=== PATIENT | female | born 2000 | race Hispanic/Latino ===

== ENCOUNTER 2020-01-24 11:56 | Observation (INO) | payer MEDICAID, OTHER ==
[~2020-01-24] VITALS: Ht 154.9 cm; Wt 57.2 kg
[2020-01-24 12:41] LABS: APPEARANCE,URINE CLEAR (CLEAR); BILIRUBIN,URINE NEGATIVE (NEGATIVE); COLOR,URINE YELLOW (YELLOW); GLUCOSE, URINE (UA) NEGATIVE (NEGATIVE); KETONES,URINE NEGATIVE (NEGATIVE); LEUKOCYTE ESTERASE ,URINE MODERATE (NEGATIVE); NITRATE,URINE NEGATIVE (NEGATIVE); OCCULT BLOOD,URINE NEGATIVE (NEGATIVE); PROTEIN,URINE NEGATIVE (NEGATIVE)
[2020-01-24 12:49] LABS: AMPHET/METH SCREEN,URINE NEGATIVE (NEGATIVE); BARBITURATE SCREEN, URINE NEGATIVE (NEGATIVE); BENZODIAZEPINES SCREEN,URINE NEGATIVE (NEGATIVE); CANNABINOID SCREEN,URINE NEGATIVE (NEGATIVE); COCAINE SCREEN,URINE NEGATIVE (NEGATIVE); OPIATE SCREEN,URINE NEGATIVE (NEGATIVE); PHENCYCLIDINE SCREEN,URINE NEGATIVE (NEGATIVE)
[2020-01-24 12:55] LABS: BACTERIA,URINE Few /HPF (None Seen); RBC,URINE 0-1 /HPF (0-1)
[2020-01-24 12:56] LABS: SQUAMOUS EPITHELIAL CELL,UR Few /HPF (0-2)
[2020-01-24 14:25] VITALS: BP 100/75
== END 2020-01-24 14:35 | disposition home or self-care (01) ==
LOC: EDH 11:56 → LDH 12:19
PROVIDERS: ADMIT Obstetrics & Gynecology; ATTEND Obstetrics & Gynecology
DX: O26.893 Other specified pregnancy related conditions, third trimester (principal); R10.9 Unspecified abdominal pain; Z3A.40 40 weeks gestation of pregnancy
CPT/HCPCS: 80305; 81001; 87088; 99284; G0378 ×2

== ENCOUNTER 2020-01-26 21:59 | Inpatient (IN) | payer MEDICAID, OTHER ==
[~2020-01-26] VITALS: Ht 157.5 cm; Wt 59.4 kg
[2020-01-26] MEDS ORDERED: LACTATED RINGERS 1000ML IV PRN (22:15)
[2020-01-26 22:36] LABS: BILIRUBIN,URINE Negative (NEGATIVE); COLOR,URINE Yellow (YELLOW); GLUCOSE, URINE (UA) Negative (NEGATIVE); KETONES,URINE Negative (NEGATIVE); LEUKOCYTE ESTERASE ,URINE Moderate (NEGATIVE); NITRATE,URINE Negative (NEGATIVE); OCCULT BLOOD,URINE Negative (NEGATIVE); PH,URINE 7.5 (5.0-8.0); PROTEIN,URINE Negative (NEGATIVE)
[2020-01-26 22:38] LABS: APPEARANCE,URINE CLEAR (CLEAR)
[2020-01-26 22:43] LABS: AMPHET/METH SCREEN,URINE NEGATIVE (NEGATIVE); BARBITURATE SCREEN, URINE NEGATIVE (NEGATIVE); BENZODIAZEPINES SCREEN,URINE NEGATIVE (NEGATIVE); CANNABINOID SCREEN,URINE NEGATIVE (NEGATIVE); COCAINE SCREEN,URINE NEGATIVE (NEGATIVE); OPIATE SCREEN,URINE NEGATIVE (NEGATIVE); PHENCYCLIDINE SCREEN,URINE NEGATIVE (NEGATIVE)
[2020-01-26 22:52] LABS: BACTERIA,URINE Few /HPF (None Seen); RBC,URINE 0-1 /HPF (0-1)
[2020-01-26] MEDS ORDERED: AMPICILLIN 2GM+NS 100ML 100 ML IV SCH (23:00)
[2020-01-26 23:23] LABS: HEMATOCRIT 35.2 % (36-48); MEAN CORPUSCULAR HEMOGLOBIN 22.9 pg (27.0-33.0); MEAN CORPUSCULAR HGB CONC 29.8 g/dL (32.0-36.0); MEAN CORPUSCULAR VOLUME 76.9 fL (80-100); PLATELET COUNT (AUTO) 260 K/uL (130-400); RED BLOOD CELL COUNT(AUTO) 4.58 MIL/uL (4.00-5.50); RED CELL DISTRIBUTION WIDTH 15.2 % (11.0-15.5); WHITE BLOOD COUNT (AUTO) 8.4 K/uL (4.8-10.8)
[2020-01-26] MEDS ORDERED: AMPICILLIN 2GM+NS 100ML 100 ML IV ONE (23:41)
[2020-01-26] MEDS ORDERED: LACTATED RINGERS 1000ML 1,000 ML IV ONE (23:42)
[2020-01-26] MEDS ORDERED: LACTATED RINGERS 1000ML 1,000 ML IV PRN (23:49)
[2020-01-26 23:54] VITALS: BP 119/81
[2020-01-27] MEDS ORDERED: OXYTOCIN-LR 20 UNITS/1000 ML 1,000 ML IV PRN
[2020-01-27] MEDS: AMPICILLIN 1GM+NS 50ML 50 ML IV SCH ×2 (03:03→07:02)
[2020-01-27] MEDS ORDERED: PREN1TAB80 PO (06:22)
[2020-01-27] MEDS ORDERED: OXYTOCIN 10 USP UNITS/ML 20 UNIT in LACTATED RINGERS 1000ML 1,000 ML IV SCH (08:15)
[2020-01-27] MEDS ORDERED: BUTORPHANOL TARTRATE 2 MG/ML IVP SCH (08:30)
[2020-01-27] MEDS ORDERED: BUTORPHANOL TARTRATE 2 MG/ML ONE (08:32)
[2020-01-27] MEDS ORDERED: LIDOCAINE HCL 1% 20 ML VIAL ONE (09:06)
[2020-01-27] MEDS ORDERED: METHYLERGONOVINE MALEATE 0.2 MG/1 ML ML ONE (09:08)
[2020-01-27] MEDS ORDERED: BENZOCAINE/LANOLIN/ALOE VERA 60 ML AEROSOL TP PRN (09:30)
[2020-01-27] MEDS ORDERED: DIPH,PERTUSS(ACELL),TET VAC/PF 0.5 ML VIAL IM PRN (09:30)
[2020-01-27] MEDS ORDERED: ACETAMINOPHEN-CODEINE 300/30MG TAB PO PRN (09:30)
[2020-01-27] MEDS ORDERED: LANOLIN 30GM OINTMENT TP PRN (09:30)
[2020-01-27] MEDS ORDERED: ACETAMINOPHEN 325 MG TAB PO PRN (09:30)
[2020-01-27] MEDS ORDERED: WITCH HAZEL 1 PAD TP PRN (09:30)
[2020-01-27] MEDS ORDERED: MEASLES/MUMPS/RUBELLA VACCINE, LIVE 0.5 ML/VIAL SQ PRN (09:30)
[2020-01-27] MEDS: IBUPROFEN 600 MG TABLET PO PRN ×2 (11:10→18:34)
[2020-01-27 12:50] VITALS: BP 120/81
[2020-01-27 13:42] LABS: RAPID PLASMA REAGIN NONREACTIVE (NONREACTIVE)
[2020-01-27 17:10] VITALS: BP 115/82
[2020-01-27 19:45] VITALS: BP 112/70
[2020-01-27] MEDS: DOCUSATE SODIUM 100 MG CAP PO SCH (20:28)
[2020-01-28 00:05] VITALS: BP 112/77
[2020-01-28] MEDS: IBUPROFEN 600 MG TABLET PO PRN ×3 (04:19→16:56)
[2020-01-28 04:25] VITALS: BP 116/75
[2020-01-28 06:59] LABS: HEMATOCRIT 27.8 % (36-48); MEAN CORPUSCULAR HEMOGLOBIN 23.3 pg (27.0-33.0); MEAN CORPUSCULAR HGB CONC 30.2 g/dL (32.0-36.0); RED BLOOD CELL COUNT(AUTO) 3.61 MIL/uL (4.00-5.50); RED CELL DISTRIBUTION WIDTH 15.1 % (11.0-15.5); WHITE BLOOD COUNT (AUTO) 9.9 K/uL (4.8-10.8)
[2020-01-28 07:22] VITALS: BP 102/67
[2020-01-28] MEDS: DOCUSATE SODIUM 100 MG CAP PO SCH ×2 (08:47→21:45)
--- NOTE | 2020-01-28 09:45 | NUR ---
SS Referral for No PNC SW met with pt. who is alert and cooperative. Pt. reports that this is her third /delivery and has named baby Tremaine Laurent. Other children are 2y, 1y, currently being cared for by [facility] and reportedly current with immunizations. Pt. is not employed outside the home; spouse Deepak Laurent is employed in construction. Pt. denied any history of PPD and verbalized an awareness/knowledge of signs/symptoms. Pt. denied any history of depression or anxiety; denied any use of etoh, tobacco or illicit substances. There are no smokers in the home. Pt. stated that she did not have medicaid and was unable to seek PNC. Pt. reported that she applied for Medicaid online but reply from the state was lengthy. Pt. receives [employer] 500./month. All utilities reportedly connected in the home, family has own transportation and carseat in place. Pt. reported that her aunt/friend will assist with care post discharge and provide transportation home. [employer] will be Dr. Prnice. Pt. voiced no SS needs or concerns. Pt. was provided with community resources. Pt. and baby to be discharged home when medically cleared. Addendum: 01/28/20 at 1046 by ZEUS FERNÁNDEZ Amended: Links added.
[2020-01-28 11:12] LABS: HEPATITIS Bs ANTIGEN SCREEN P Negative (Negative)
[2020-01-28 11:18] VITALS: BP 108/64
[2020-01-28 16:24] VITALS: BP 118/69
[2020-01-28 20:15] VITALS: BP 121/65
[2020-01-29 00:15] VITALS: BP 112/66
[2020-01-29 03:40] VITALS: BP 97/58
[2020-01-29 07:21] VITALS: BP 106/69
[2020-01-29] MEDS: IBUPROFEN 600 MG TABLET PO PRN (09:09)
[2020-01-29] MEDS: DOCUSATE SODIUM 100 MG CAP PO SCH (09:10)
--- NOTE | 2020-01-29 09:40 | NUR ---
pt is discharged, verbal and written discharge instructions given, informed of the follow up appointment, prescription given. informed to call the doctor for future concerns. pt voiced understanding to all things discussed. pt is waiting for baby's discharge. Addendum: 01/29/20 at 0954 by NEEL NORTH RN Amended: Links added.
[2020-01-29 11:36] VITALS: BP 94/57
--- NOTE | 2020-01-29 14:50 | NUR ---
pt is dismissed with baby in stable condition, brought to private car via wheelchair Michelle ramsey Addendum: 01/29/20 at 1455 by NEEL NORTH RN Amended: Links added.
== END 2020-01-29 14:50 | disposition home or self-care (01) | DRG 560 ==
LOC: EDH 21:59 → LDH 22:00 → OBSVTOIN 22:00 → WSH 01-27 12:55
PROVIDERS: ADMIT Obstetrics & Gynecology; ATTEND Obstetrics & Gynecology
PROC: 10E0XZZ Delivery of Products of Conception, External Approach (ICD-10-PCS; principal; 2020-01-27)
PROC: 10907ZC Drainage of Amniotic Fluid, Therapeutic from Products of Conception, Via Natural or Artificial Opening (ICD-10-PCS; 2020-01-27)
PROC: 0HQ9XZZ Repair Perineum Skin, External Approach (ICD-10-PCS; 2020-01-27)
PROC: 3E0134Z Introduction of Serum, Toxoid and Vaccine into Subcutaneous Tissue, Percutaneous Approach (ICD-10-PCS; 2020-01-27)
DX: O70.0 First degree perineal laceration during delivery (principal); Z37.0 Single live birth; Z23 Encounter for immunization; Z3A.39 39 weeks gestation of pregnancy
CPT/HCPCS: 36415; 76805; 76819; 80305; 81001; 85027; 86592; 86701; 86850; 86900; 86901; 87340; 87390; 90707; G0378; J0290; J0595; J2210; J2590; J7120